=== PATIENT | male | born 1965 | race Caucasian/White ===

== ENCOUNTER 2022-05-28 16:50 | Emergency (ER) | payer SELFPAY ==
[2022-05-28 16:54] VITALS: BP 160/106; PULSE 100; RESP 20; TEMP 36.9; O2SAT 100; BMI 27.2
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
[2022-05-28 18:58] LABS: Appearance Urine Clear (Clear); Bilirubin Urine Negative (Negative); Blood Urine Negative (Negative); Color Urine Dark yellow (Yellow); Glucose Urine Negative (Negative); Ketones Urine Negative (Negative); Leukocyte Esterase Urine Negative (Negative); Nitrite Urine Negative (Negative); Protein Urine Negative (Negative); Specific Gravity Urine >= 1.030 (1.000-1.030); Urobilinogen Urine 0.2 (0.2-1.0); pH Urine 5.5 (5.0-8.5)
[2022-05-28 19:19] LABS: RBC Urine 0-2 (0-2); Squamous Epithelial Cell Urine Few (None-Few); WBC Urine 0-2 (0-5)
== END 2022-05-28 18:54 | disposition home or self-care (01) ==
PROVIDERS: Emergency Provider Family Medicine
DX: K59.00 Constipation, unspecified (principal); M54.16 Radiculopathy, lumbar region
CPT/HCPCS: 81001; 99283; 99284